=== PATIENT | female | born 1990 | race African-American/Black ===

== ENCOUNTER 2017-12-06 10:50 | Inpatient (IN) ==
[2017-12-06 11:29] LABS: Basophils % 0.2 % (0.0-0.8); Eosinophils # 0.1 10*3/uL (0.0-0.87); Eosinophils % 0.8 % (0.00-10.9); Hematocrit 28.6 VOL% (35.7-47.0); Immature Granulocytes % 1.3 %; Immature Granulocytes Absolute 0.14 #; Lymphocytes # 2.6 10*3/uL (1.4-4.0); Lymphocytes % 24.3 % (21.3-54.2); Mean Corpuscular Hemoglobin 28 PG (27-34); Mean Corpuscular Volume 80.3 FL (87-102); Mean Platelet Volume 9.9 FL (9.6-12.0); Monocytes # 0.9 10*3/uL (0.11-0.8); Monocytes % 8.7 % (1.7-12.7); Neutrophils # 6.9 10*3/uL (1.4-7.4); Neutrophils % 64.7 % (38.7-73.9); Platelet Count 270 T/CUMM (130-400); Red Blood Count 3.56 MC/CUMM (3.8-5.5); Red Cell Distribution Width 13.1 % (9.3-17.3); White Blood Count 10.6 T/CUMM (4-12)
[2017-12-06] MEDS ORDERED: BETAMETH SODIUM PHOS/ACETATE 30 MG/5 ML VIAL IM SCH (11:30)
[2017-12-06 11:33] LABS: INR 0.9; PT Patient Result 9.4 SECS; Partial Thromboplastin Time 24.9 SECS (0-40)
[2017-12-06 11:37] LABS: Alanine Aminotransferase 16 U/L (13-56); Albumin 2.7 G/DL (3.4-5.0); Alkaline Phosphatase 125 U/L (45-117); Aspartate Amino Transferase 19 U/L (0-37); Bilirubin,Total < 0.39 MG/DL (0.2-1.0); Blood Urea Nitrogen 10 MG/DL (7-18); Calcium 8.7 MG/DL (8.5-10.1); Glucose 80 MG/DL (74-106); Osmolality,Calculated 270.8 MOS/KG (273-304); Potassium 3.9 MMOL/L (3.5-5.1); Sodium 137 MMOL/L (136-145); Total Protein 6.7 G/DL (6.4-8.3)
[2017-12-06] MEDS ORDERED: hydrALAZINE 20 MG/1 ML VIAL IV ONE ×2 (13:57→16:17)
[2017-12-06] MEDS: LACTATED RINGERS 1,000 ML IV SCH ×2 (14:18→16:32)
[2017-12-06] MEDS ORDERED: ONDANSETRON 4 MG/2 ML VIAL IV PRN ×2 (14:41→17:42)
[2017-12-06] MEDS ORDERED: FAMOTIDINE 20 MG/2 ML VIAL IV ONE (16:14)
[2017-12-06] MEDS ORDERED: CITRIC ACID/SODIUM CITRATE 30 ML UDCUP PO ONE (16:14)
[2017-12-06] MEDS ORDERED: ceFAZolin 2,000 MG in PREMIX 1 EACH IV ONE (16:14)
[2017-12-06] MEDS ORDERED: OXYTOCIN/LR 20 UNIT/1,000 ML BAG IV ONE ×3 (16:23→17:42)
[2017-12-06] MEDS ORDERED: TISSUE ADHESIVE 1 EACH APPLICATOR TOP ONE (17:17)
[2017-12-06] MEDS ORDERED: ACETAMINOPHEN 325 MG TABLET PO PRN (17:42)
[2017-12-06] MEDS ORDERED: RHO(D) IMMUNE GLOBULIN 300 MCG SYRINGE IM ONE (17:42)
[2017-12-06 17:46] LABS: Apearance,Urine CLEAR (Clear); Bacteria,Urine Occasional /HPF (Few); Bilirubin,Urine Negative (Negative); Blood, Urine Negative (Negative); Glucose,Urine (UA) Negative (Negative); Ketones,Urine 20 mg/dL (Negative); Mucus,Urine Occasional /LPF (Occasional); Nitrite,Urine Negative (Negative); Protein,Urine Negative; RBC,Urine 1 /HPF (0-4); Squamous Epithelial Cell,Urine Occasional /HPF (0-10); Urine Color Straw (Yellow); Urine Specific Gravity 1.004 (1.001-1.035); Urine Urobilinogen < 2.0 EU/DL (0.2-1.0); WBC,Urine 1 /HPF (0-6)
[2017-12-06] MEDS: METHYLDOPA 500 MG TABLET PO SCH (17:49)
[2017-12-06] MEDS ORDERED: MAGNESIUM SULF RIDER 4 GM in PREMIX 1 EACH IV ONE (17:50)
[2017-12-06] MEDS ORDERED: LACTATED RINGERS 1,000 ML IV SCH (18:00)
[2017-12-06 18:41] LABS: Cord Arterial Blood HCO3 19.2 MMOL/L
[2017-12-06] MEDS: MAGNESIUM SULF DRIP 40 GM/1,000 ML ML IV SCH (20:14)
[2017-12-06] MEDS ORDERED: MORPHINE 10 MG/10 ML VIAL ONE (21:11)
[2017-12-06] MEDS ORDERED: BUPIVACAINE SPINAL 0.75% 2 ML AMP SPINAL ONE (21:11)
[2017-12-06] MEDS ORDERED: PROPOFOL 200 MG/20 ML VIAL IV ONE (21:11)
[2017-12-06] MEDS ORDERED: fentaNYL 100 MCG/2 ML VIAL ONE (21:12)
[2017-12-06] MEDS ORDERED: ePHEDrine 50 MG/ML AMP ONE (21:13)
[2017-12-06] MEDS ORDERED: ONDANSETRON 4 MG/2 ML VIAL ONE (21:13)
[2017-12-06] MEDS: DOCUSATE SODIUM 100 MG CAPSULE PO SCH (21:41)
[2017-12-06] MEDS: IBUPROFEN 800 MG TABLET PO PRN (21:43)
[2017-12-06 22:15] LABS: Basophils % 0.2 % (0.0-0.8); Hematocrit 27.9 VOL% (35.7-47.0); Hemoglobin 9.8 GM/DL (12.0-16.0); Immature Granulocytes Absolute 0.77 #; Lymphocytes # 2.8 10*3/uL (1.4-4.0); Mean Corpuscular HGB Conc 35.1 GM/DL (32-36); Mean Corpuscular Hemoglobin 29 PG (27-34); Mean Corpuscular Volume 81.1 FL (87-102); Mean Platelet Volume 9.9 FL (9.6-12.0); Monocytes % 3.8 % (1.7-12.7); NRBC # 0.02 10*3/uL; Platelet Count 325 T/CUMM (130-400); Red Blood Count 3.44 MC/CUMM (3.8-5.5); Red Cell Distribution Width 13.4 % (9.3-17.3); White Blood Count 25.6 T/CUMM (4-12)
[2017-12-07] MEDS: METHYLDOPA 500 MG TABLET PO SCH ×3 (00:24→16:53)
[2017-12-07 02:21] LABS: Basophils % 0.2 % (0.0-0.8); Hematocrit 25.3 VOL% (35.7-47.0); Hemoglobin 9.1 GM/DL (12.0-16.0); Immature Granulocytes % 2.6 %; Immature Granulocytes Absolute 0.63 #; Lymphocytes # 1.5 10*3/uL (1.4-4.0); Lymphocytes % 6.3 % (21.3-54.2); Mean Corpuscular Hemoglobin 29 PG (27-34); Mean Corpuscular Volume 80.6 FL (87-102); Mean Platelet Volume 9.8 FL (9.6-12.0); Monocytes # 1.1 10*3/uL (0.11-0.8); Monocytes % 4.7 % (1.7-12.7); Neutrophils # 20.5 10*3/uL (1.4-7.4); Neutrophils % 86.2 % (38.7-73.9); Platelet Count 276 T/CUMM (130-400); Red Blood Count 3.14 MC/CUMM (3.8-5.5); Red Cell Distribution Width 13.3 % (9.3-17.3); White Blood Count 23.8 T/CUMM (4-12)
[2017-12-07 02:41] LABS: Albumin 2.6 G/DL (3.4-5.0); Bilirubin,Total 0.5 MG/DL (0.2-1.0); Calcium 7.2 MG/DL (8.5-10.1); INR 0.9; Osmolality,Calculated 270.1 MOS/KG (273-304); PT Patient Result 9.3 SECS; Partial Thromboplastin Time 22.4 SECS (0-40); Potassium 4.2 MMOL/L (3.5-5.1); Total Protein 5.8 G/DL (6.4-8.3)
[2017-12-07 04:08] LABS: Lymphocytes 12 % (20-55); Platelet Estimate Normal; Segmented Neutrophils 84 % (50-85); Total Cells Counted 100
[2017-12-07 06:25] LABS: Band Neutrophils 1 % (0-10); Lymphocytes 4 % (20-55); Microcytosis 1+; Platelet Estimate Adequate; Segmented Neutrophils 92 % (50-85); Total Cells Counted 100
[2017-12-07] MEDS: LACTATED RINGERS 1,000 ML IV SCH (08:00)
[2017-12-07] MEDS: DOCUSATE SODIUM 100 MG CAPSULE PO SCH ×2 (09:00→20:42)
[2017-12-07] MEDS: MULTIVITAMIN (PRENATAL) TABLET PO SCH (09:43)
[2017-12-07] MEDS: MAGNESIUM HYDROXIDE SUSP 30 ML UDCUP PO PRN (13:35)
[2017-12-07] MEDS: MAGNESIUM SULF DRIP 40 GM/1,000 ML ML IV SCH (15:41)
[2017-12-07] MEDS: SIMETHICONE CHEW 80 MG TABLET PO PRN (20:42)
[2017-12-08] MEDS: METHYLDOPA 500 MG TABLET PO SCH ×3 (01:09→16:45)
[2017-12-08] MEDS: MAGNESIUM HYDROXIDE SUSP 30 ML UDCUP PO PRN ×2 (02:58→20:20)
[2017-12-08] MEDS: SIMETHICONE CHEW 80 MG TABLET PO PRN ×2 (02:58→16:45)
[2017-12-08] MEDS: MULTIVITAMIN (PRENATAL) TABLET PO SCH (09:50)
[2017-12-08] MEDS: DOCUSATE SODIUM 100 MG CAPSULE PO SCH ×2 (09:50→20:20)
[2017-12-08] MEDS ORDERED: BISACODYL 10 MG SUPP RECTAL PRN (14:17)
[2017-12-08] MEDS: IBUPROFEN 800 MG TABLET PO PRN (20:20)
[2017-12-09] MEDS: METHYLDOPA 500 MG TABLET PO SCH ×2 (00:34→08:20)
[2017-12-09] MEDS: DOCUSATE SODIUM 100 MG CAPSULE PO SCH (08:20)
[2017-12-09] MEDS: MULTIVITAMIN (PRENATAL) TABLET PO SCH (08:20)
[2017-12-09 10:24] VITALS: BP 138/73
== END 2017-12-09 14:05 | disposition home or self-care (01) | DRG 540 ==
LOC: N.LDOUT 10:50 → N.LD 10:52 → N.OB 12-07 22:02
PROVIDERS: ADMIT Obstetrics & Gynecology; ATTEND Obstetrics & Gynecology
PROC: LDCSECT (ICD-10-PCS; 2017-12-06 17:00)